=== PATIENT | female | born 1970 | race Caucasian/White ===

== ENCOUNTER 2017-09-09 14:53 | Emergency (ER) | payer BC ==
[~2017-09-09] VITALS: Ht 170.2 cm; Wt 81.6 kg
[2017-09-09 14:55] VITALS: BP_SYST 144
[2017-09-09] MEDS ORDERED: KETOROLAC TROMETHAMINE 60 MG/2 ML VIAL IM ONE (15:30)
[2017-09-09 15:34] LABS: BASOPHILS # (AUTO) 0.1 K/uL (0.0-0.2); BASOPHILS % (AUTO) 0.7 % (0.0-2.0); EOSINOPHILS # (AUTO) 0.2 K/uL (0.0-0.4); EOSINOPHILS % (AUTO) 2.7 % (0.0-4.0); HEMATOCRIT 40.4 % (36-48); HEMOGLOBIN 13.6 g/dL (12.0-16.0); LYMPHOCYTES # (AUTO) 1.7 K/uL (1.0-5.5); LYMPHOCYTES % (AUTO) 23.6 % (20.5-51.5); MEAN CORPUSCULAR HEMOGLOBIN 31 pg (27-31); MEAN CORPUSCULAR HGB CONC 34 % (32-36); MEAN CORPUSCULAR VOLUME 92 fL (79.0-98.0); MONOCYTES # (AUTO) 0.4 K/uL (0.0-1.0); MONOCYTES % (AUTO) 5.6 % (1.7-9.3); NEUTROPHILS # (AUTO) 4.8 K/uL (1.8-7.7); NEUTROPHILS % (AUTO) 67.4 % (40.0-70.0); PLATELET COUNT (AUTO) 232 K/uL (130-430); RED BLOOD CELL COUNT(AUTO) 4.39 MIL/uL (4.2-6.2); WHITE BLOOD COUNT (AUTO) 7.2 K/uL (4.8-10.8)
[2017-09-09 15:46] LABS: CALCIUM 8.6 mg/dL (8.4-11.0); CREATININE 0.88 mg/dL (0.55-1.30); POTASSIUM 3.9 mmol/L (3.5-5.1)
[2017-09-09 15:51] LABS: ALBUMIN 3.7 g/dL (3.4-4.8); TOTAL BILIRUBIN 0.5 mg/dL (0.0-1.0)
[2017-09-09 16:22] VITALS: BP_SYST 144
== END 2017-09-09 16:22 | disposition home or self-care (01) ==
LOC: SED 14:53
DX: M25.511 Pain in right shoulder (principal); R03.0 Elevated blood-pressure reading, without diagnosis of hypertension; J45.909 Unspecified asthma, uncomplicated; Z90.710 Acquired absence of both cervix and uterus; Z88.6 Allergy status to analgesic agent; Z88.5 Allergy status to narcotic agent; Z88.8 Allergy status to other drugs, medicaments and biological substances
CPT/HCPCS: 36415; 73030; 80053; 81025; 84484; 85025; 93005; 96372; 99285; J1885

== ENCOUNTER 2019-04-01 21:17 | Emergency (ER) | payer BC ==
[~2019-04-01] VITALS: Ht 170.2 cm; Wt 82.6 kg
[2019-04-01 21:39] VITALS: BP_SYST 116
--- NOTE | 2019-04-01 21:44 | NUR ---
Patient triaged and placed in waiting room. VSS and patient appears in no acute distress at this time. Accompanied by self, awaiting available bed, and MD notified of need for MSE.
--- NOTE | 2019-04-01 21:52 | NUR ---
Patient to ER bed louie for evaluation. Side rails up. Report given to Josefina CHAUDHARI.
--- NOTE | 2019-04-01 22:30 | NUR ---
PT came to the ED for R wrist injury. Reports that she was working out at the gym earlier today and and fell backwards on both hands. Reports pain is in R wrist. Pain is 5/10. Denies n/v/d or fever. No other complaints/injuries noted. Will cont. to monitor.
--- NOTE | 2019-04-01 22:35 | NUR ---
ER at bedside examining patient.
[2019-04-01] MEDS ORDERED: KETOROLAC TROMETHAMINE 30 MG VIAL IM ONE (23:15)
[2019-04-01 23:30] VITALS: BP_SYST 116
--- NOTE | 2019-04-01 23:30 | NUR ---
Patient given written and verbal discharge instructions and verbalizes understanding. ER MD Dr. Romano discussed with patient the results and treatment provided. Patient in stable condition. ID arm band removed. Rx of ibuprofen given. Patient educated on pain management and to follow up with PMD. Pain Scale 0/10. Opportunity for questions provided and answered. Medication side effect fact sheet provided.
== END 2019-04-01 23:30 | disposition home or self-care (01) ==
LOC: SED 21:17
DX: S63.501A Unspecified sprain of right wrist, initial encounter (principal); J45.909 Unspecified asthma, uncomplicated; Z88.5 Allergy status to narcotic agent; Z88.6 Allergy status to analgesic agent; Z88.8 Allergy status to other drugs, medicaments and biological substances; W19.XXXA Unspecified fall, initial encounter; Y93.89 Activity, other specified; Y92.89 Other specified places as the place of occurrence of the external cause; Y99.8 Other external cause status
CPT/HCPCS: 29125; 73110; 96372; 99283; J1885